=== PATIENT | female | born 1950 | race Caucasian/White ===

== ENCOUNTER 2016-07-07 10:19 | Inpatient (IN) | payer BC ==
[~2016-07-07] VITALS: Ht 167.6 cm; Wt 63.5 kg
--- NOTE | ~2016-07-07 | S ---
[facility] [address] [place] [address] SURGICAL PATH RPT PROCEDURE Name: HARVINDER JONES Room #: 405-P [facility] IN M.R.#: [id number] Admission: 07/07/16 Date of : 54 Discharge: 07/08/16 Report #: [id number] Path Case #: [id number] PATHOLOGY REPORT DRAFT COLLECTION DATE: 07/08/2016 RECEIVED DATE: 07/09/2016 SPECIMEN(S) RECEIVED: A.Polyp proximal ascending 4 mm B.Polyp splenic flexure 5 mm C.Polyp rectum
--- NOTE | ~2016-07-07 | D ---
[facility] [place] [address] DISCHARGE SUMMARY Name: HARVINDER JONES Room #: 405-P [facility] IN M.R.#: [id number] Admission: 07/07/16 Attend Phys: Richy Jin MD Discharge: 07/08/16 Date of : 54 Report #: [id number] THIS REPORT FOR: //name// CC: Richy Greco DATE OF SERVICE: 07/08/2016 FINAL DIAGNOSIS: Diverticulosis. HOSPITAL COURSE: The patient was admitted for abdominal symptoms and a positive screening Cologuard test for colon cancer. She underwent a colonoscopy, which revealed diverticulosis. Please see those results. Biopsies were pending. Pathology findings and lab work was unremarkable. DISPOSITION: She will be discharged to home with diet and activity as tolerated. Follow up in the office as needed. If new issues arise on pathology report, she will be contacted. <ELECTRONICALLY SIGNED> By: Richy Jin MD 07/10/16 0800 1423 [id number] Richy Jin MD /nt
--- NOTE | ~2016-07-07 | P ---
[facility] [place] [address] PROCEDURE REPORT Name: HARVINDER JONES Room #: 405-P [facility] IN M.R.#: [id number] Admission: 07/07/16 Attend Phys: Richy Jin MD Discharge: 07/08/16 Date of : 54 Report #: [id number] THIS REPORT FOR: //name// CC: Richy Greco DATE OF SERVICE: 07/08/2016 PATIENT OF: Dr. Richy Jin. INDICATION FOR PROCEDURE: This patient was discovered to have a positive Cologuard test for colon cancer and colon polyp screening. She was sent in for screening colonoscopy. Informed consent for this procedure was obtained prior to the administration of any medication. The risks of the procedure which include bleeding, perforation, infection, complications of sedation and the possibility I could miss something have been explained to the patient and she has indicated her consent by signing. Propofol was slowly titrated before and during this procedure for patient comfort by the anesthesia service. The Fujinon colonoscope was introduced through the anal sphincter and advanced under direct visualization to the terminal ileum. Findings are noted on withdrawal of the scope. Terminal ileal mucosa appears normal. Cecum, normal mucosa. Ascending colon, proximal ascending colon, there was a 4 mm sessile polyp that was removed in toto with a regular biopsy forceps and sent to pathology lab. Good hemostasis was noted after that polypectomy. There were two diverticula that were uncomplicated in the ascending colon. Hepatic flexure, normal mucosa. Transverse colon, normal mucosa. There was a single diverticulum in the mid transverse colon that was uncomplicated. Splenic flexure, there is a 5 mm sessile polyp in the splenic flexure that I removed in toto with the cold snare and sent to pathology lab. Good hemostasis was noted after that polypectomy as well. Descending colon, a few uncomplicated diverticula noted. Sigmoid colon, multiple uncomplicated diverticula are noted. In the rectum, there is a 5 mm sessile rectal polyp removed in toto with a hot snare and sent to pathology lab. Good hemostasis was noted after all of the polypectomies. Retroflex view in the rectum did not reveal any further abnormalities. The scope was withdrawn. The patient went to the recovery area in stable condition. She tolerated the procedure well. IMPRESSION: 1. Uncomplicated pancolonic diverticulosis, worse in the sigmoid. 2. Colon polyps removed as above, some of them are 5 mm or greater in size. Recommendations are to await the path report. [address] [address] PROCEDURE REPORT Name: HARVINDER JONES Room #: 405-P [facility] IN M.R.#: [id number] Admission: 07/07/16 Attend Phys: Richy Jin MD Discharge: 07/08/16 Date of : 54 Report #: [id number] Thank you very much once again for allowing me to participate in her care, Dr. Jin. <ELECTRONICALLY SIGNED> By: Myrna Anderson DO 07/08/16 2325 [id number] [id number] Myrna Anderson DO /nt
--- NOTE | ~2016-07-07 | H ---
[facility] [place] [address] HISTORY AND PHYSICAL Name: HARVINDER JONES Room #: 405-P [facility] IN M.R.#: [id number] Admission: 07/07/16 Attend Phys: Richy Jin MD Discharge: Date of : 54 Report #: [id number] THIS REPORT FOR: //name// CC: Richy Greco DATE OF SERVICE: 07/07/2016 CHIEF COMPLAINT: Abdominal pain. HISTORY OF PRESENT ILLNESS: The patient is a 65-year-old female who was admitted for evaluation of abdominal symptoms. During the course of screening health maintenance testing earlier this year, she underwent a Cologaurd testing at home. This came up positive, which would be concerning for a colonic lesion. She developed a little bit of abdominal discomfort with episode of frequent bowel movement yesterday. In the past, she has attempted outpatient colonoscopy with the prep at home, but failed. She developed nausea, vomiting and she reported electrolyte disturbance due to the bowel prep at home. She was fearful of trying to attempt this at home and is being admitted for evaluation of abdominal symptoms. PAST MEDICAL HISTORY: None. PAST SURGICAL HISTORY: None. FAMILY HISTORY: Noncontributory. SOCIAL HISTORY: No chronic alcohol or tobacco use. ALLERGIES: None. MEDICATIONS: Tylenol No. 3. REVIEW OF SYSTEMS: Denies headache, chest pain, shortness of breath, dysuria, myalgias, syncope or fall. PHYSICAL EXAMINATION: VITAL SIGNS: Temperature 36.9, pulse 93, respirations 18, blood pressure 139/77 and O2 sat 97%. GENERAL: She is awake and alert, in no distress. HEAD AND NECK: Unremarkable. LUNGS: Clear. HEART: Regular. ABDOMEN: Soft. Normoactive bowel sounds. EXTREMITIES: No edema. [facility] [address] [place] [address] HISTORY AND PHYSICAL Name: HARVINDER JONES Room #: 405-P [facility] IN .R.#: [id number] Admission: 07/07/16 Attend Phys: Richy Jin MD Discharge: Date of : 54 Report #: [id number] LABORATORY DATA: Basic chemistry is normal. ASSESSMENT: 1. Abdominal pain. 2. Abnormal colon cancer screening. PLAN: I have spoken to the GI service and they will assess her and start bowel prep today with clear liquid diet. Colonoscopy tomorrow to rule out colon cancer. <ELECTRONICALLY SIGNED> By: Richy Jin MD 07/08/16 1025 1314 [id number] Richy Jin MD /nt
[2016-07-07 11:00] VITALS: BP 139/77
[2016-07-07 12:41] LABS: CALCIUM 9.4 mg/dL (8.5-10.1); CREATININE 0.7 mg/dL (0.6-1.0); POTASSIUM 3.6 mmol/L (3.5-5.1)
[2016-07-07 13:42] LABS: ABSOLUTE NEUTROPHILS 3.6 thou/uL (1.4-8.2); BASOPHILS 0.6 % (0.0-2.0); EOSINOPHILS 0.7 % (0.0-3.0); HEMATOCRIT 41.1 % (37.0-47.0); HEMOGLOBIN 14.2 gm/dL (12.0-15.0); LYMPHOCYTES 40.6 % (24.0-44.0); MANUAL DIFF NO; MCH 32.2 pg (26.0-34.0); MCHC 34.6 g/dL (28.0-37.0); MCV 92.8 fL (80.0-100.0); PLATELET COUNT 283 thou/uL (150-400); POLYS 52.1 % (36.0-66.0); RBC 4.43 mil/uL (4.20-5.00); RDW 12.8 % (10.5-14.5)
[2016-07-07 15:53] VITALS: BP 126/67
[2016-07-07 19:33] VITALS: BP 117/63
[2016-07-08 03:30] VITALS: BP 94/44
[2016-07-08 05:53] LABS: CALCIUM 9.2 mg/dL (8.5-10.1); CREATININE 0.6 mg/dL (0.6-1.0); POTASSIUM 4.1 mmol/L (3.5-5.1)
[2016-07-08 08:13] VITALS: BP 115/61
[2016-07-08 17:08] VITALS: BP 115/61
[2016-07-08 17:35] VITALS: BP 151/72
== END 2016-07-08 18:02 | disposition home or self-care (01) | DRG 392 ==
LOC: 4N 10:19
PROVIDERS: Internal Medicine Geriatric Medicine; Nurse Practitioner Adult Health
PROC: 0DBL8ZX Excision of Transverse Colon, Via Natural or Artificial Opening Endoscopic, Diagnostic (ICD-10-PCS; principal; 2016-07-08)
PROC: 0DBK8ZX Excision of Ascending Colon, Via Natural or Artificial Opening Endoscopic, Diagnostic (ICD-10-PCS; principal; 2016-07-08)
PROC: 0DBP8ZX Excision of Rectum, Via Natural or Artificial Opening Endoscopic, Diagnostic (ICD-10-PCS; principal; 2016-07-08)
DX: K57.30 Diverticulosis of large intestine without perforation or abscess without bleeding (principal); I10 Essential (primary) hypertension; F41.9 Anxiety disorder, unspecified; G47.00 Insomnia, unspecified; Z88.8 Allergy status to other drugs, medicaments and biological substances; Z79.899 Other long term (current) drug therapy
CPT/HCPCS: 10790; 62110; 62900; 70005